=== PATIENT | female | born 1950 | race Asian ===

== ENCOUNTER 2016-10-07 09:51 | Outpatient (CLI) | payer MEDICARE ==
--- NOTE | 2016-10-08 13:18 | Mammography Report ---
BILATERAL DIGITAL SCREENING MAMMOGRAM with CAD: 10/07/16 09:51:00 CLINICAL: Routine screening. COMPARISON:09/05/15 FINDINGS: The breasts are almost entirely fatty. No mass, architectural distortion or suspicious calcifications. IMPRESSION: No mammographic evidence of malignancy. BI-RADS CATEGORY: 2 -- Benign RECOMMENDATION: Routine mammographic screening in one year. COMMENT: Patient follow-up letters are generated by our [employer] application.
== END 2016-10-07 09:52 | disposition home or self-care (01) ==
LOC: SPVWC 09:51
PROVIDERS: ATTEND Internal Medicine
DX: Z12.31 Encounter for screening mammogram for malignant neoplasm of breast (principal)
CPT/HCPCS: 77067; G0202

== ENCOUNTER 2017-06-12 10:56 | Outpatient (CLI) | payer MEDICARE ==
--- NOTE | 2017-07-15 09:13 | Vascular Lab Report ---
CAROTID DUPLEX STUDY: RIGHT PSVEDV CCA PROX:[id number] CCA DIST:6212 ICA PROX:5612 ICA MID:7924 ICA DIST:7222 ECA: 73 VERT: 25 7 LEFT PSVEDV CCA PROX:[id number] CCA DIST:6816 ICA PROX:6014 ICA MID:6322 ICA DIST:7125 ECA: 64 VERT: 36 14 REASON FOR EXAM: Carotid artery stenosis. COMMENTS ON THE RIGHT: Doppler frequency analysis is consistent with 16 to 49 percent diameter reduction of the internal carotid artery. Minimal amount of plaque is seen. The common carotid artery is patent. The external carotid artery is patent. The vertebral artery has antegrade flow. COMMENTS ON THE LEFT: Doppler frequency analysis is consistent with 16 to 49 percent diameter reduction of the internal carotid artery. Minimal amount of plaque is seen. The common carotid artery is patent. The external carotid artery is patent. The vertebral artery has antegrade flow. IMPRESSION: Less than 50% diameter reduction in the internal carotid arteries bilaterally. Consider repeat carotid artery duplex in 12 months.
== END 2017-06-12 10:57 | disposition home or self-care (01) ==
LOC: VAS 10:56
PROVIDERS: ATTEND Internal Medicine
DX: I70.90 Unspecified atherosclerosis (principal); R09.89 Other specified symptoms and signs involving the circulatory and respiratory systems
CPT/HCPCS: 93880

== ENCOUNTER 2017-07-14 08:17 | Outpatient (CLI) | payer MEDICARE ==
--- NOTE | 2017-07-14 09:34 | Cat Scan Report ---
CT CHEST WITHOUT CONTRAST: 07/14/17 08:17:00 CLINICAL: History of infiltrate. No comparison studies. TECHNIQUE: Volumetric acquisition and 1.25 mm scan reconstructions without contrast. FINDINGS: Very mild bilateral lower lobe ground glass opacities. The lungs are otherwise clear. No pulmonary nodule or mass. Normal heart, aorta and pulmonary vasculature. No mediastinal or hilar lymphadenopathy. Small bilateral axillary lymph nodes. Normal thyroid, trachea and esophagus. The upper abdomen is unremarkable. Degenerative changes in the spine and no suspicious bone lesion. IMPRESSION: 1. Very mild bilateral lower lobe groundglass opacities are consistent with mild chronic interstitial disease which is probably clinically insignificant. 2. No pneumonia. 3. No nodule or mass.
== END 2017-07-14 08:18 | disposition home or self-care (01) ==
LOC: SPVIMAG 08:17
PROVIDERS: ATTEND Internal Medicine
DX: R91.8 Other nonspecific abnormal finding of lung field (principal); M47.894 Other spondylosis, thoracic region
CPT/HCPCS: 71250

== ENCOUNTER 2019-06-10 11:30 | Outpatient (CLI) | payer MEDICARE ==
--- NOTE | 2019-06-13 15:21 | Mammography Report ---
DIGITAL SCREENING MAMMOGRAM WITH CAD, 06/10/2019 INDICATION: Routine screening mammography. TECHNIQUE: Digital bilateral 2D mammography was obtained in the craniocaudal and mediolateral obliq ue projections. This examination was interpreted with the benefit of Computer-Aided Detection analysi s. COMPARISON: 05/25/2018 FINDINGS: Breast Density: There are scattered areas of fibroglandular density. There is no evidence of dominant mass, suspicious calcifications or architectural distortion in eithe r breast. 3 right upper biopsy clips. Bilateral benign calcifications, some of which are arterial. IMPRESSION: No mammographic evidence of malignancy. Follow up recommendation: Routine yearly BI-RADS Category 2: Benign. A "normal" or negative report should not discourage follow up or biopsy of a clinically significant f inding. A written summary of these findings will be mailed to the patient. The patient will be entered into a mammography reporting system which will generate a reminder letter for the patient's next appointmen t at the appropriate interval. The [employer] recommends yearly mammograms starting at age 40 and continuing as l dacia as a woman is in good health. Breast MRI is recommended for women with an approximate 20-25% or greater lifetime risk of breast cancer, including women with a strong family history of breast or ova fabricio cancer or who have been treated for Hodgkin's disease. Signer Name: Efrain Shelley MD Signed: 06/13/2019 3:17 PM Workstation Name: [id number]
== END 2019-06-10 11:31 | disposition home or self-care (01) ==
LOC: SPVWC 11:30
PROVIDERS: ATTEND Internal Medicine
DX: Z12.31 Encounter for screening mammogram for malignant neoplasm of breast (principal)
CPT/HCPCS: 77067

== ENCOUNTER 2021-06-10 11:50 | Outpatient (CLI) | payer MEDICARE ==
--- NOTE | 2021-06-12 07:24 | Mammography Report ---
DIGITAL SCREENING MAMMOGRAM WITH CAD, 06/10/2021 CLINICAL INFORMATION / INDICATION: Routine screening mammography. SCREENING MAMMO TECHNIQUE: Digital bilateral 2D mammography was obtained in the craniocaudal and mediolateral obliqu e projections. This examination was interpreted with the benefit of Computer-Aided Detection analysis . COMPARISON: 06/10/2019 FINDINGS: Breast Density: There are scattered areas of fibroglandular density. No dominant mass, suspicious calcifications, or architectural distortion in either breast. Biopsy change on the right. Stable bilateral nodularity. IMPRESSION: No mammographic evidence of malignancy. Follow up recommendation: Routine yearly BI-RADS Category 2: Benign. A "normal" or negative report should not discourage follow up or biopsy of a clinically significant f inding. A written summary of these findings will be mailed to the patient. The patient will be entered into a mammography reporting system which will generate a reminder letter for the patient's next appointmen t at the appropriate interval. The [employer] recommends yearly mammograms starting at age 40 and continuing as l dacia as a woman is in good health. Breast MRI is recommended for women with an approximate 20-25% or greater lifetime risk of breast cancer, including women with a strong family history of breast or ova fabricio cancer or who have been treated for Hodgkin's disease. Signer Name: David De La Garza MD Signed: 06/12/2021 7:20 AM Workstation Name: [id number]
== END 2021-06-10 11:51 | disposition home or self-care (01) ==
LOC: SPVWC 11:50
PROVIDERS: ATTEND Internal Medicine
DX: Z12.31 Encounter for screening mammogram for malignant neoplasm of breast (principal)
CPT/HCPCS: 77067